=== PATIENT | male | born 1985 | race Caucasian/White ===

== ENCOUNTER 2016-08-25 08:32 | Emergency (ER) | payer BC ==
[~2016-08-25 08:32] MED LIST: ADVIL200 M2 PO; MUCINEX600 M1 PO; NORCO 5-325 TA1 EACH PO; OMEPRAZOLE20 M4 PO; PROVENTIL HFA6.7 G1 INH; ZITHROMAX250 M1 PO; ZOFRAN ODT4 MG PO; ZYRTEC-D TABLE1 EAC1 PO; ZYRTEC10 M7 PO
[2016-08-25 09:26] LABS: BASO % 0.5 % (0-2); EOS % 2.3 % (0-7); EOSINOPHIL ABSOLUTE COUNT 0.1 tho/cmm (0.0-0.7); HGB-HEMOGLOBIN 14.6 gm/dl (13.5-17.0); IMMATURE GRANULOCYTES ABSOLUTE 0.01 tho/cmm (0-0.03); IMMATURE GRANULOCYTES PERCENT 0.2 % (0-0.3); LYMPH % 38.5 % (20-45); LYMPH ABSOLUTE COUNT 1.7 tho/cmm (0.8-4.5); MCH (MEAN CORPUSCULAR HGB) 30.2 pg (28.0-32.0); MCHC MEAN CORPUSCULAR HGB CONC 34.8 % (32.0-36.0); MEAN PLATELET VOLUME 9.6 cmc (9.4-12.4); MONO % 10.9 % (0-12); MONOCYTE ABSOLUTE COUNT 0.5 tho/cmm (0.0-1.2); NEUTROPHIL ABSOLUTE COUNT 2.1 tho/cmm (1.6-8.0); NEUTROPHIL-AUTOMATED 2.1 tho/cmm (1.6-8.0); NEUTROPHILS % 47.6 % (40-80); PLATELET COUNT 215 tho/cmm (150-450); RED BLOOD COUNT 4.83 mil/cmm (4.40-5.70); RED CELL DISTRIBUTION WIDTH 12.1 % (12.4-16.4); WHITE BLOOD COUNT 4.3 tho/cmm (4.0-10.0)
[2016-08-25 09:42] LABS: ANION GAP 7 mmol/L (0-20); BLOOD UREA NITROGEN 11 mg/dl (6-24); CALCIUM 8.6 mg/dl (8.5-10.5); CARBON DIOXIDE-VENOUS 31 mmol/L (22-32); CHLORIDE 107 mmol/l (96-110); CREATININE 0.99 mg/dl (0.60-1.30); GLUCOSE 83 mg/dL (70-110); POTASSIUM 4.2 mmol/L (3.7-5.1); SODIUM 141 mmol/L (135-145); eGFR VALUE FOR BLACK >90 mL/Min
== END 2016-08-25 10:39 ==
LOC: EDMED 08:32
PROVIDERS: Emergency Medicine
DX: R07.89 Other chest pain (principal); I48.91 Unspecified atrial fibrillation; F17.200 Nicotine dependence, unspecified, uncomplicated; R00.2 Palpitations
CPT/HCPCS: J1885